=== PATIENT | female | born 1960 | race American Indian/Alaskan Native ===

== ENCOUNTER 2021-03-03 17:58 | Emergency (ER) | payer MEDICAID ==
[2021-03-03 21:07] VITALS: BP 163/76
[2021-03-03] MEDS ORDERED: ACETAMINOPHEN 325 MG TAB PO ONE (23:00)
[2021-03-03] MEDS ORDERED: predniSONE 20 MG TAB PO ONE (23:00)
--- NOTE | 2021-03-03 23:41 | Emergency Department Report ---
ED Extremity Problem HPI - General Chief complaint: Extremity Problem,Nontraumatic Stated complaint: BILATERAL LEG AND ANKLE PAIN Source: patient Mode of arrival: Ambulatory Limitations: No Limitations - History of Present Illness Initial comments: Patient is a 60-year-old -[place] female with a history of PTSD, anxiety, depression, paranoid schizophrenia and chronic osteoarthritis who presents to the ED with acute exacerbation of her chronic osteoarthritis characterized by severe right plantar foot pain and right foot pain for the last 4 days after walking all over the city. Patient states that she is homeless at this time having traveled from [place] recently and is here to get a place to stay. Patient states that she does not take any other medications for pain other than [id number] Tylenol. Patient states that she has a buddhist monk attached to [facility] that she usually visits for evaluation. Patient denies fall, dizziness, syncope, chest pain, shortness of breath, nausea and vomiting, fever, chills, low back pain, headache, abdominal pain or cough, heavy lifting or traumatic injury. MD Complaint: extremity pain (Right plantar foot pain), joint paint (Right foot pain) -: Gradual, year(s) (4) Location: right, lower extremity (Right plantar foot pain) History of Same: Yes (Chronic osteoarthritis) -: Yes arthralgia, No fever, No associated dyspnea, No associated chest pain Radiation: distal Severity scale (0 -10): 8 Quality: aching, sharp Consistency: constant Improves with: nothing Worsens with: weight bearing, walking, exertion, palpation Associated Symptoms: denies other symptoms, arthralgias. denies: chest pain, shortness of breath, myalgias, rash - Related Data Home Medications Medication Instructions Recorded Confirmed Last Taken Trifluoperazine HCl 2 mg PO QHS 10/31/15 10/31/15 10/31/15 diphenhydrAMINE [Benadryl CAP] 50 mg PO QHS PRN 10/31/15 10/31/15 10/31/15 Previous Rx's Medication Instructions Recorded Last Taken Type OLANZapine [Zyprexa] 5 mg PO HS #10 tablet 06/28/18 Unknown Rx Allergies Allergy/AdvReac Type Severity Reaction Status Date / Time DUST Allergy Unknown Uncoded 10/30/15 22:45 ED Review of Systems ROS: Stated complaint: BILATERAL LEG AND ANKLE PAIN Other details as noted in HPI Constitutional: denies: chills, fever Eyes: denies: eye pain, eye discharge, vision change ENT: denies: ear pain, throat pain Respiratory: denies: cough, shortness of breath, wheezing Cardiovascular: denies: chest pain, palpitations Endocrine: no symptoms reported Gastrointestinal: denies: abdominal pain, nausea, diarrhea Genitourinary: denies: urgency, dysuria, discharge Musculoskeletal: arthralgia (Right plantar foot pain), myalgia. denies: back pain, joint swelling Skin: denies: rash, lesions Neurological: denies: headache, weakness, paresthesias Psychiatric: denies: anxiety, depression Hematological/Lymphatic: denies: easy bleeding, easy bruising ED Past Medical Hx - Past Medical History Previous Medical History?: Yes Hx Arthritis: Yes Hx Psychiatric Treatment: Yes (DEPRESSION, PTSD) Additional medical history: AFIB, BILATERAL FOOT DEFORMITY, AFIB, OSTEOPOROSIS - Surgical History Past Surgical History?: Yes Hx Cholecystectomy: Yes Additional Surgical History: TUBAL LIGATION, BILATERAL EYE SURGERY - Social History Smoking Status: Former Smoker Substance Use Type: None - Medications Home Medications: Home Medications Medication Instructions Recorded Confirmed Last Taken Type Trifluoperazine HCl 2 mg PO QHS 10/31/15 10/31/15 10/31/15 History diphenhydrAMINE [Benadryl CAP] 50 mg PO QHS PRN 10/31/15 10/31/15 10/31/15 History OLANZapine [Zyprexa] 5 mg PO HS #10 tablet 06/28/18 Unknown Rx ED Physical Exam - General Limitations: No Limitations General appearance: alert, in no apparent distress - Head Head exam: Present: atraumatic, normocephalic, normal inspection - Eye Eye exam: Present: normal appearance, PERRL, EOMI Pupils: Present: normal accommodation - ENT ENT exam: Present: normal exam, normal orophraynx, mucous membranes moist, TM's normal bilaterally, normal external ear exam - Neck Neck exam: Present: normal inspection, full ROM - Respiratory Respiratory exam: Present: normal lung sounds bilaterally. Absent: respiratory distress, wheezes, rales, rhonchi, chest wall tenderness, accessory muscle use, decreased breath sounds, prolonged expiratory - Cardiovascular Cardiovascular Exam: Present: regular rate, normal rhythm, normal heart sounds. Absent: systolic murmur, diastolic murmur, rubs, gallop - GI/Abdominal GI/Abdominal exam: Present: soft, normal bowel sounds. Absent: tenderness, guarding, rebound, hyperactive bowel sounds, hypoactive bowel sounds, organomegaly - Extremities Exam Extremities exam: Present: normal inspection, full ROM, tenderness (Palpable right plantar foot tenderness), normal capillary refill - Back Exam Back exam: Present: normal inspection, full ROM. Absent: tenderness, CVA tenderness (R), CVA tenderness (L), muscle spasm, paraspinal tenderness, vertebral tenderness - Neurological Exam Neurological exam: Present: alert, oriented X3, CN II-XII intact, normal gait, reflexes normal - Psychiatric Psychiatric exam: Present: normal affect, normal mood - Skin Skin exam: Present: warm, dry, intact, normal color. Absent: rash ED Course Vital Signs 03/03/21 21:00 Temperature 98 F Pulse Rate 63 Respiratory 18 Rate Blood Pressure 163/76 [Right] O2 Sat by Pulse 97 Oximetry ED Medical Decision Making - Medical Decision Making This is a 60-year-old -[place] female with a history of PTSD, anxiety, depression, paranoid schizophrenia and chronic osteoarthritis who presents to the ED with acute exacerbation of her chronic osteoarthritis characterized by severe right plantar foot pain and right foot pain for the last 4 days after walking all over the city. Patient states that she is homeless at this time having traveled from [place] recently and is here to get a place to stay. Patient states that she does not take any other medications for pain other than [id number] Tylenol. Patient states that she has a buddhist monk attached to [facility] that she usually visits for evaluation. In the ED, patient is alert and oriented x3 and is not in any distress. Based on the history and physical exam findings, the patient was treated for pain in the ED. Patient condition is chronic. Patient was therefore discharged from the ED and advised to continue taking her usual medications including Tylenol. Patient was also advised to follow-up with her buddhist monk in 7 to 10 days for reevaluation. - Differential Diagnosis chronic pain; chronic osteoarthritis; Plantar fasciitis; Muscle strain Critical care attestation.: If time is entered above; I have spent that time in minutes in the direct care of this critically ill patient, excluding procedure time. ED Disposition Clinical Impression: Chronic osteoarthritis, Plantar fasciitis of right foot Disposition: TO HOME OR SELFCARE Is pt being admited?: No Does the pt Need Aspirin: No Condition: Stable Instructions: Arthritis, [id number], Plantar Fasciitis Rehab-Sports[facility] Additional Instructions: Take your regular pain medication with food, drink plenty of fluids and follow- up with your buddhist monk in 5 to 7 days for reevaluation. Return to the ED immediately if symptoms get worse. Referrals: [facility] [Outside] - 3-5 Days [facility] [Provider Group] - 3-5 Days Time of Disposition: 23:40 Print Language: [place]
== END 2021-03-03 23:50 | disposition home or self-care (01) ==
LOC: ED 17:58
DX: M72.2 Plantar fascial fibromatosis (principal); M19.91 Primary osteoarthritis, unspecified site; F32.9 Major depressive disorder, single episode, unspecified; Z90.49 Acquired absence of other specified parts of digestive tract; Z98.51 Tubal ligation status; Z98.890 Other specified postprocedural states; Z79.899 Other long term (current) drug therapy; Z88.8 Allergy status to other drugs, medicaments and biological substances
CPT/HCPCS: 99283; J7512